=== PATIENT | male | born 1930 | race Caucasian/White ===

== ENCOUNTER 2018-01-17 08:47 | Inpatient (IN) | payer MEDICARE, OTHER ==
[2018-01-17] MEDS: CEFAZOLIN 2 GM/50 ML (PMX) 50 ML IVPB (08:00)
[2018-01-17] MEDS ORDERED: POLYMYXIN B 500000 UNIT INJ (11:23)
[2018-01-17] MEDS ORDERED: MIDAZOLAM 1 MG/ML 2 ML INJ ×2 (11:31→14:38)
[2018-01-17] MEDS ORDERED: BUPIVACAINE 0.75%/DEXT (SPINAL) 2 ML INJ (11:38)
[2018-01-17] MEDS ORDERED: PHENYLephrine (100 MCG/ML) 5ML SYG ×2 (11:54→14:50)
[2018-01-17] MEDS: TRANEXAMIC ACID 1,000 MG in NS 100 ML PRE-OP X1 IVPB (12:06)
[2018-01-17] MEDS: POLYMYXIN B 500000 UNIT INJ IRR (12:28)
[2018-01-17] MEDS: BACITRACIN 50000 UNITS INJ IRR (12:28)
[2018-01-17] MEDS ORDERED: ONDANSETRON 4 MG INJ (13:33)
[2018-01-17] MEDS ORDERED: CEFAZOLIN 1 GM INJ (13:35)
[2018-01-17] MEDS ORDERED: ETOMIDATE 20 MG INJ (13:35)
[2018-01-17] MEDS ORDERED: NEOSTIGMINE 3 MG/3 ML SYRINGE (13:35)
[2018-01-17] MEDS ORDERED: LIDOCAINE 2% (SDV) 5 ML INJ (13:35)
[2018-01-17] MEDS ORDERED: GLYCOPYRROLATE 0.4 MG INJ (13:35)
[2018-01-17] MEDS ORDERED: ROCURONIUM 50 MG INJ (13:35)
[2018-01-17] MEDS ORDERED: PROVENTIL HFA 6.7GM INHALER (13:42)
[2018-01-17] MEDS: TRANEXAMIC ACID 1,000 MG in NS 100 ML INTRA-OP X1 IVPB (13:44)
[2018-01-17] MEDS ORDERED: ZOLPIDEM 5 MG TAB PO (14:00)
[2018-01-17] MEDS: ONDANSETRON 4 MG INJ IV ×2 (14:00→20:08)
[2018-01-17] MEDS ORDERED: TRIMETHOBENZAMIDE 100 MG/ML VIAL IM (14:00)
[2018-01-17] MEDS ORDERED: oxyCODONE 5 MG TAB PO ×2 (14:00)
[2018-01-17] MEDS ORDERED: NALOXONE (0.4 MG/ML) INJ IV (14:00)
[2018-01-17] MEDS ORDERED: NA PHOSPHATE/BIPHOS 133 ML ENEMA PR (14:00)
[2018-01-17] MEDS ORDERED: BETHANECHOL 25 MG TAB PO (14:00)
[2018-01-17] MEDS ORDERED: SENNA/DOCUSATE NA (8.6MG/50MG) TAB PO (14:00)
[2018-01-17] MEDS: CEFAZOLIN 1 GM/50 ML (PMX) 50 ML IVPB ×2 (14:00→21:29)
[2018-01-17] MEDS ORDERED: MAGNESIUM HYDROXIDE 30ML CUP PO (14:00)
[2018-01-17] MEDS ORDERED: NACL 0.9% 3 ML SYG IV (14:00)
[2018-01-17] MEDS ORDERED: BISACODYL 10 MG SUPP PR (14:00)
[2018-01-17] MEDS ORDERED: DIPHENHYDRAMINE 50 MG INJ IV ×2 (14:00→14:30)
[2018-01-17] MEDS ORDERED: ALBUTEROL 0.083% (NEB) 2.5 MG/3 ML AMP (14:09)
[2018-01-17] MEDS: ALBUTEROL 0.083% (NEB) 2.5 MG/3 ML AMP HHN (14:17)
[2018-01-17] MEDS ORDERED: FUROSEMIDE 20 MG INJ (14:27)
[2018-01-17] MEDS ORDERED: ONDANSETRON 4 MG INJ IV (14:30)
[2018-01-17] MEDS ORDERED: HYDROmorphONE (0.2 MG/ML) 10ML SYG IV ×2 (14:30)
[2018-01-17] MEDS: FUROSEMIDE 20 MG INJ IV (14:30)
[2018-01-17] MEDS ORDERED: MEPERIDINE 25 MG INJ IV (14:30)
[2018-01-17] MEDS: SOD CHLORIDE 0.9% 1,000 ML IV ×2 (15:00→21:31)
[2018-01-17] MEDS: MIDAZOLAM 1 MG/ML 2 ML INJ IV (15:00)
[2018-01-17] MEDS: hydrALAzine 20 MG INJ IV (15:00)
[2018-01-17] MEDS: FENTAnyl 50 MCG/ML VIAL IV (15:05)
[2018-01-17] MEDS ORDERED: PHENYLephrine 40 MG in DEXTROSE 5% 496 ML IV (16:00)
[2018-01-17] MEDS ORDERED: ALBUTEROL HFA 8 GM INHALER INH (17:30)
[2018-01-17] MEDS: DOCUSATE SODIUM 100 MG CAP PO (19:04)
[2018-01-17] MEDS: ASPIRIN (EC) 325 MG TAB PO (19:05)
[2018-01-17] MEDS: KETOROLAC 15 MG INJ IV (19:09)
[2018-01-17] MEDS: GABAPENTIN 100 MG CAP PO (21:29)
[2018-01-17] MEDS: ATORVASTATIN 10 MG TAB PO (21:29)
[2018-01-17] MEDS: oxyCODONE 5 MG TAB PO (21:41)
[2018-01-18] MEDS: ONDANSETRON 4 MG INJ IV ×2 (02:00→08:00)
[2018-01-18] MEDS: oxyCODONE 5 MG TAB PO ×4 (04:41→17:46)
[2018-01-18 05:31] LABS: ADD MAN DIFF? NO
[2018-01-18 05:46] LABS: BASOPHILS % 0.4 % (0.0-2.0); EOSINOPHILS % 0.4 % (0.0-7.0); HEMATOCRIT 30.5 % (42.0-52.0); HEMOGLOBIN 10.5 g/dl (14.0-18.0); LYMPHOCYTES # 1.2 10^3/ul (0.8-2.9); LYMPHOCYTES % 13.9 % (15.0-51.0); MEAN CORPUSCULAR HEMOGLOBIN 31.1 pg (29.0-33.0); MEAN CORPUSCULAR HGB CONC 34.4 g/dl (32.0-37.0); MEAN CORPUSCULAR VOLUME 90.2 fl (82.0-101.0); MEAN PLATELET VOLUME 8.9 fl (7.4-10.4); MONOCYTE # 1.1 10^3/ul (0.3-0.9); MONOCYTES % 12.5 % (0.0-11.0); NEUTROPHIL # 6.2 10^3/ul (1.6-7.5); NEUTROPHILS % 72.3 % (39.0-77.0); PLATELET COUNT 185 10^3/UL (140-415); RED BLOOD COUNT 3.38 10^6/ul (4.70-6.10); RED CELL DISTRIBUTION WIDTH 14.2 % (11.5-14.5)
[2018-01-18 05:46] LABS: WHITE BLOOD COUNT 8.6 10^3/ul (4.8-10.8)
[2018-01-18 06:06] LABS: ANION GAP 11 (8-16); BLOOD UREA NITROGEN 18 mg/dl (7-20); CALCIUM 8.4 mg/dl (8.4-10.2); CARBON DIOXIDE 28 mmol/L (21-31); CHLORIDE 102 mmol/L (97-110); CREATININE 0.94 mg/dl (0.61-1.24); GLUCOSE 118 mg/dl (70-220); POTASSIUM 4.4 mmol/L (3.5-5.1); SODIUM 137 mmol/L (135-144)
[2018-01-18] MEDS: LEVOTHYROXINE 112 MCG TAB PO (06:25)
[2018-01-18] MEDS: CEFAZOLIN 1 GM/50 ML (PMX) 50 ML IVPB (06:25)
[2018-01-18] MEDS: PANTOPRAZOLE (EC) 40 MG TAB PO (06:25)
[2018-01-18 06:35] LABS: THYROID STIMULATING HORMONE 0.118 MIU/L (0.465-4.680)
[2018-01-18] MEDS: FERROUS FUMARATE (SR) TAB PO ×2 (08:57→20:18)
[2018-01-18] MEDS: CHOLECALCIFEROL 1,000 UNIT TAB PO (08:57)
[2018-01-18] MEDS: ASPIRIN (EC) 325 MG TAB PO (08:57)
[2018-01-18] MEDS: GABAPENTIN 100 MG CAP PO ×2 (08:57→20:19)
[2018-01-18] MEDS: DOCUSATE SODIUM 100 MG CAP PO ×2 (08:57→20:19)
[2018-01-18] MEDS: CELECOXIB 200 MG CAP PO ×2 (08:58→20:19)
[2018-01-18] MEDS: METOPROLOL 50 MG TAB PO ×2 (12:36→20:20)
[2018-01-18] MEDS: SOD CHLORIDE 0.9% 1,000 ML IV (14:49)
[2018-01-18] MEDS: ATORVASTATIN 10 MG TAB PO (20:18)
[2018-01-18] MEDS: CELECOXIB 100 MG CAP PO (21:00)
[2018-01-19] MEDS: oxyCODONE 5 MG TAB PO (02:38)
[2018-01-19] MEDS: SOD CHLORIDE 0.9% 1,000 ML IV (03:19)
[2018-01-19 04:53] LABS: ADD MAN DIFF? NO
[2018-01-19 04:56] LABS: BASOPHIL # 0.1 10^3/ul (0.0-0.1); BASOPHILS % 0.5 % (0.0-2.0); EOSINOPHILS # 0.2 10^3/ul (0.0-0.5); EOSINOPHILS % 2.3 % (0.0-7.0); HEMATOCRIT 31.2 % (42.0-52.0); HEMOGLOBIN 10.5 g/dl (14.0-18.0); LYMPHOCYTES # 0.8 10^3/ul (0.8-2.9); LYMPHOCYTES % 8.5 % (15.0-51.0); MEAN CORPUSCULAR HEMOGLOBIN 30.4 pg (29.0-33.0); MEAN CORPUSCULAR HGB CONC 33.7 g/dl (32.0-37.0); MEAN CORPUSCULAR VOLUME 90.4 fl (82.0-101.0); MONOCYTE # 1.1 10^3/ul (0.3-0.9); MONOCYTES % 11.3 % (0.0-11.0); NEUTROPHIL # 7.6 10^3/ul (1.6-7.5); NEUTROPHILS % 76.9 % (39.0-77.0); PLATELET COUNT 154 10^3/UL (140-415); RED BLOOD COUNT 3.45 10^6/ul (4.70-6.10); RED CELL DISTRIBUTION WIDTH 14.2 % (11.5-14.5)
[2018-01-19 04:56] LABS: WHITE BLOOD COUNT 9.9 10^3/ul (4.8-10.8)
[2018-01-19 05:17] LABS: ANION GAP 7 (8-16); BLOOD UREA NITROGEN 15 mg/dl (7-20); CALCIUM 8.5 mg/dl (8.4-10.2); CARBON DIOXIDE 29 mmol/L (21-31); CHLORIDE 100 mmol/L (97-110); CREATININE 0.82 mg/dl (0.61-1.24); GLUCOSE 109 mg/dl (70-220); POTASSIUM 4.3 mmol/L (3.5-5.1); SODIUM 132 mmol/L (135-144)
[2018-01-19] MEDS: PANTOPRAZOLE (EC) 40 MG TAB PO (06:04)
[2018-01-19] MEDS: LEVOTHYROXINE 112 MCG TAB PO (06:04)
[2018-01-19] MEDS: ASPIRIN (EC) 325 MG TAB PO (10:52)
[2018-01-19] MEDS: GABAPENTIN 100 MG CAP PO ×2 (10:52→20:51)
[2018-01-19] MEDS: CELECOXIB 100 MG CAP PO ×2 (10:52→20:50)
[2018-01-19] MEDS: FERROUS FUMARATE (SR) TAB PO ×2 (10:52→20:50)
[2018-01-19] MEDS: DOCUSATE SODIUM 100 MG CAP PO ×2 (10:52→20:50)
[2018-01-19] MEDS: METOPROLOL 50 MG TAB PO ×2 (10:53→20:51)
[2018-01-19 16:04] LABS: FREE T4 (FREE THYROXINE) 2.53 ng/dl (0.85-1.93)
[2018-01-19 16:11] LABS: T4 (THYROXINE) 10.2 ug/dl (5.5-11.0)
[2018-01-19 16:30] LABS: OSMOLALITY 272 mOsm/kg (280-295)
[2018-01-19] MEDS: FAMOTIDINE 20 MG TAB PO (17:33)
[2018-01-19] MEDS: ATORVASTATIN 10 MG TAB PO (20:50)
[2018-01-19] MEDS: AMLODIPINE 2.5 MG TAB PO (20:51)
[2018-01-20 04:53] LABS: WHITE BLOOD COUNT 12.2 10^3/ul (4.8-10.8)
[2018-01-20 04:53] LABS: ABNORMAL IP MESSAGE 1; ADD MAN DIFF? NO; BASOPHIL # 0.1 10^3/ul (0.0-0.1); BASOPHILS % 0.5 % (0.0-2.0); EOSINOPHILS # 0.3 10^3/ul (0.0-0.5); EOSINOPHILS % 2.8 % (0.0-7.0); HEMATOCRIT 33.2 % (42.0-52.0); HEMOGLOBIN 11.1 g/dl (14.0-18.0); LYMPHOCYTES % 8.5 % (15.0-51.0); MEAN CORPUSCULAR HEMOGLOBIN 30.3 pg (29.0-33.0); MEAN CORPUSCULAR HGB CONC 33.4 g/dl (32.0-37.0); MEAN CORPUSCULAR VOLUME 90.7 fl (82.0-101.0); MEAN PLATELET VOLUME 8.7 fl (7.4-10.4); MONOCYTE # 1.5 10^3/ul (0.3-0.9); MONOCYTES % 12.4 % (0.0-11.0); NEUTROPHIL # 9.2 10^3/ul (1.6-7.5); NEUTROPHILS % 75.4 % (39.0-77.0); PLATELET COUNT 165 10^3/UL (140-415); POSITIVE DIFF @See below; RED BLOOD COUNT 3.66 10^6/ul (4.70-6.10); RED CELL DISTRIBUTION WIDTH 14.1 % (11.5-14.5)
[2018-01-20 05:15] LABS: ANION GAP 13 (8-16); BLOOD UREA NITROGEN 31 mg/dl (7-20); CALCIUM 9.1 mg/dl (8.4-10.2); CARBON DIOXIDE 28 mmol/L (21-31); CHLORIDE 99 mmol/L (97-110); CREATININE 2.56 mg/dl (0.61-1.24); GLUCOSE 109 mg/dl (70-220); POTASSIUM 5.6 mmol/L (3.5-5.1); SODIUM 134 mmol/L (135-144)
[2018-01-20] MEDS: PANTOPRAZOLE (EC) 40 MG TAB PO (06:07)
[2018-01-20] MEDS: LEVOTHYROXINE 112 MCG TAB PO (06:07)
[2018-01-20] MEDS: SODIUM CHLORIDE 0.45% 500 ML BAG IV* (08:00)
[2018-01-20] MEDS: SOD CHLORIDE 0.45% 1,000 ML IV (09:25)
[2018-01-20] MEDS: METOPROLOL 50 MG TAB PO ×2 (09:31→20:18)
[2018-01-20] MEDS: AMLODIPINE 2.5 MG TAB PO ×2 (09:31→20:18)
[2018-01-20] MEDS: DOCUSATE SODIUM 100 MG CAP PO ×2 (09:55→20:16)
[2018-01-20] MEDS: ASPIRIN (EC) 325 MG TAB PO (09:55)
[2018-01-20] MEDS: FERROUS FUMARATE (SR) TAB PO ×2 (09:55→20:16)
[2018-01-20] MEDS: CELECOXIB 100 MG CAP PO ×2 (09:56→20:17)
[2018-01-20] MEDS: GABAPENTIN 100 MG CAP PO ×2 (09:56→20:17)
[2018-01-20] MEDS: FAMOTIDINE 20 MG TAB PO ×2 (09:56→20:17)
[2018-01-20 13:12] LABS: ADD UMIC YES; UR ASCORBIC ACID NEGATIVE (NEGATIVE); UR BACTERIA FEW /HPF (NONE SEEN); UR BILIRUBIN (Dip) NEGATIVE (NEGATIVE); UR BLOOD (Dip) 2+ mg/dL (NEGATIVE); UR CLARITY CLEAR (CLEAR); UR COLOR YELLOW (YELLOW); UR GLUCOSE (Dip) NEGATIVE (NEGATIVE); UR KETONES (Dip) NEGATIVE (NEGATIVE); UR LEUKOCYTE ESTERASE (Dip) NEGATIVE Leu/ul (NEGATIVE); UR NITRITE (Dip) NEGATIVE (NEGATIVE); UR RBC 5 /HPF (0-5); UR SPECIFIC GRAVITY (Dip) 1.008 (1.003-1.030); UR TOTAL PROTEIN (Dip) NEGATIVE (NEGATIVE); UR UROBILINOGEN (Dip) NEGATIVE (NEGATIVE); UR WBC 2 /HPF (0-5)
[2018-01-20 13:49] LABS: SODIUM,URINE RANDOM 26 mmol/L (30-90)
[2018-01-20 14:39] LABS: OSMOLALITY,URINE 263 mOsm/kg (250-1200)
[2018-01-20] MEDS: ATORVASTATIN 10 MG TAB PO (20:18)
[2018-01-21] MEDS: LEVOTHYROXINE 112 MCG TAB PO (05:39)
[2018-01-21] MEDS: PANTOPRAZOLE (EC) 40 MG TAB PO (05:39)
[2018-01-21 05:46] LABS: ADD MAN DIFF? NO
[2018-01-21 06:06] LABS: BASOPHILS % 0.5 % (0.0-2.0); EOSINOPHILS # 0.5 10^3/ul (0.0-0.5); EOSINOPHILS % 6.9 % (0.0-7.0); HEMATOCRIT 29.4 % (42.0-52.0); LYMPHOCYTES % 12.5 % (15.0-51.0); MEAN CORPUSCULAR HEMOGLOBIN 30.6 pg (29.0-33.0); MEAN CORPUSCULAR VOLUME 89.9 fl (82.0-101.0); MONOCYTES % 13.2 % (0.0-11.0); NEUTROPHIL # 5.2 10^3/ul (1.6-7.5); NEUTROPHILS % 66.4 % (39.0-77.0); PLATELET COUNT 186 10^3/UL (140-415); RED BLOOD COUNT 3.27 10^6/ul (4.70-6.10); RED CELL DISTRIBUTION WIDTH 13.8 % (11.5-14.5)
[2018-01-21 06:06] LABS: WHITE BLOOD COUNT 7.8 10^3/ul (4.8-10.8)
[2018-01-21 06:35] LABS: ANION GAP 11 (8-16); BLOOD UREA NITROGEN 21 mg/dl (7-20); CALCIUM 8.7 mg/dl (8.4-10.2); CARBON DIOXIDE 30 mmol/L (21-31); CHLORIDE 99 mmol/L (97-110); CREATININE 1.12 mg/dl (0.61-1.24); GLUCOSE 108 mg/dl (70-220); POTASSIUM 4.1 mmol/L (3.5-5.1); SODIUM 136 mmol/L (135-144)
[2018-01-21] MEDS: FERROUS FUMARATE (SR) TAB PO (08:27)
[2018-01-21] MEDS: GABAPENTIN 100 MG CAP PO (08:28)
[2018-01-21] MEDS: FAMOTIDINE 20 MG TAB PO (08:28)
[2018-01-21] MEDS: ASPIRIN (EC) 325 MG TAB PO (08:28)
[2018-01-21] MEDS: METOPROLOL 50 MG TAB PO (08:28)
[2018-01-21] MEDS: CELECOXIB 100 MG CAP PO (08:28)
[2018-01-21] MEDS: AMLODIPINE 2.5 MG TAB PO (08:28)
[2018-01-21] MEDS: CHOLECALCIFEROL 1,000 UNIT TAB PO (08:32)
== END 2018-01-21 17:10 | disposition home or self-care (01) | DRG 470 ==
LOC: SDS 08:47 → REC 13:53 → MS1 17:05
PROC: 0SRB0JZ Replacement of Left Hip Joint with Synthetic Substitute, Open Approach (ICD-10-PCS; principal; 2018-01-17 11:33)
DX: M16.12 Unilateral primary osteoarthritis, left hip (principal); E87.1 Hypo-osmolality and hyponatremia; N17.9 Acute kidney failure, unspecified; I95.89 Other hypotension; J44.9 Chronic obstructive pulmonary disease, unspecified; I10 Essential (primary) hypertension
CPT/HCPCS: 71045; 72170; 80048; 81001; 83930; 83935; 84300; 84436; 84439; 84443; 85025; 86850; 86900; 86901; 87081; 87086; 88304; 88311; 93970; 94660; 94664; 97116; 97162; 97165; 97530; 97535